=== PATIENT | female | born 1965 | race Caucasian/White ===

== ENCOUNTER → 2017-07-08 10:49 | Outpatient (CLI) | payer BC, SELFPAY ==
[2017-07-13 14:22] LABS: HPV Reflexed? NOT INDICATED
== END ==
PROVIDERS: Visit Provider Obstetrics & Gynecology
DX: Z12.4 Encounter for screening for malignant neoplasm of cervix (principal)
CPT/HCPCS: 88175; G0145

== ENCOUNTER 2018-06-24 10:37 | Day surgery (SDC) | payer BC, SELFPAY ==
[2018-06-24] VITALS (8 sets, daily range): BP systolic 102–128; BP diastolic 58–102; PULSE 66–75; RESP 16–18; TEMP 36.1–36.6; O2SAT 95–100; BMI 25.4
--- NOTE | 2018-06-24 11:37 | PCM.HP.STD ---
Problem List (1) Screening for intestinal cancer Status: Acute History of Present Illness Date of Admission: 06/24/18 The patient is a 53 year old F screening colonoscopy. She has never had a previous procedure. There is no increased risk. She otherwise enjoys good health. She has no abdominal pain bright red blood per rectum or melena. Past Medical History Allergies amoxicillin Allergy (Verified 06/21/18 14:28) Hives Home Medications: Ambulatory Orders Medication Instructions Recorded Ibuprofen 600 mg PO PRN PRN 06/21/18 Smoking Status: Never smoker Tobacco Use: Non-smoker Review of Systems Constitutional: Denies: Anorexia HEENT: Denies: Difficulty Swallowing Cardiovascular: Denies: Chest Pain Respiratory: Denies: Cough Gastrointestinal: Denies: Abdominal Pain, Hematochezia, Melena Skin: Denies: Dryness Psychiatric: Denies: Anxiety Endocrine: Denies: Change in Body Habitus VTE Information - Inpt Only VTE Present on Admission: No Patient Problems: Active and Suspected Problems Screening for intestinal cancer (Acute) - Physical Exam General: Alert, Oriented x3, Cooperative, No apparent distress Oral: Moist Mucosa Lungs: Clear to auscultation, Normal air movement Cardiovascular: Regular rate, Regular Rhythm Abdomen: Bowel Sounds Present, Soft, Non Tender Extremities: No Calf Tenderness Psych/Mental Status: Normal Affect Vital Signs Temp Pulse Resp BP Pulse Ox 97.8 F 69 18 121/59 H 100 06/24/18 11:10 06/24/18 11:10 06/24/18 11:10 06/24/18 11:10 06/24/18 11:10 Oxygen Delivery Method Room Air Weight: 167 lb 2.751 oz Body Mass Index (BMI) 25.4 Assessment/Plan All Active Problems Screening for intestinal cancer (Acute) I have recommended the patient a colonoscopy with possible biopsy or polypectomy as indicated. She is aware of the technique, benefits, risks and alternatives. She presents via our open access program. We will proceed as noted. David Hunt M.D., F.A.C.S.
--- NOTE | 2018-06-24 12:11 | OP.ENDO_ITS ---
06/24/2018 No Primary Care Physician Re : Colonoscopy procedure for Nathalia Gomez Dear Care Physician This procedure was performed on June. My impressions and recommendations are as follows: Impressions : - Diverticulosis in the sigmoid colon. - Tortuous colon. - No specimens collected. Recommendations : - Discharge patient to home. - Resume previous diet. - Continue present medications. - Repeat colonoscopy in 10 years for screening purposes. My findings are described in the full procedure note, which is enclosed. If I can be of further assistance, please feel free to contact me at Doctor phone number(s): Work: . Sincerely, David Hunt MD 06/24/2018 12:11:31 PM This report has been signed electronically.
== END 2018-06-24 13:03 | disposition home or self-care (01) ==
LOC: EN 10:39 → AC 10:40
PROVIDERS: Referring Provider Surgery; Visit Provider Surgery
PROC: 0DJD8ZZ Inspection of Lower Intestinal Tract, Via Natural or Artificial Opening Endoscopic (ICD-10-PCS; CPT 45378; principal; 2018-06-24 11:40)
DX: Z12.11 Encounter for screening for malignant neoplasm of colon (principal); K57.30 Diverticulosis of large intestine without perforation or abscess without bleeding; Q43.8 Other specified congenital malformations of intestine
CPT/HCPCS: 45378; 99152; 99153; J7120

== ENCOUNTER → 2018-07-13 14:50 | Outpatient (CLI) | payer BC, SELFPAY ==
[2018-06-24 11:10] VITALS: BMI 25.4
--- NOTE | 2018-07-13 14:52 | BI_ITS ---
MAMMOGRAPHY - BILATERAL SCREENING REASON FOR EXAM: Female, 53 years old. Routine annual screening examination. PERTINENT HISTORY: Non-contributory. TECHNIQUE: Digital bilateral breast grazyna (3D mammographic acquisition) in the CC and MLO projections. 2-D mediolateral oblique (MLO) and craniocaudad (CC) views of both breasts were obtained. CAD: Full Field Digital Mammography with Computer Added Detection was performed. COMPARISON: Comparison is made with prior study dated December 25, 2015 and March 31, 2017. FINDINGS: Breast Composition: The breasts are heterogeneously dense, which may obscure small masses. There are no dominant masses or suspicious calcifications. The previously seen nodular density in the upper outer quadrant of the right breast is not seen at this time. No other significant abnormalities are identified. BI/SCREENING MAMM (CAD), BILAT IMPRESSION: Stable bilateral screening mammogram. Yearly follow-up mammogram recommended. (A) ASSESSMENT CATEGORY: BIRADS Category 2: Benign. A letter regarding these results will be sent to the patient by the facility within 30 days. Approximately 10% of breast cancers are not detected by mammography. A normal mammogram should not delay biopsy of a clinically suspicious abnormality. [id number] Electronically Signed: Dakota Raphael, at 9:04 EST , Service support ,
--- NOTE | 2018-07-13 14:52 | BI_ITS ---
MAMMOGRAPHY - BILATERAL SCREENING REASON FOR EXAM: Female, 53 years old. Routine annual screening examination. PERTINENT HISTORY: Non-contributory. TECHNIQUE: Digital bilateral breast jose (3D mammographic acquisition) in the CC and MLO projections. 2-D mediolateral oblique (MLO) and craniocaudad (CC) views of both breasts were obtained. CAD: Full Field Digital Mammography with Computer Added Detection was performed. COMPARISON: Comparison is made with prior study dated December 25, 2015 and March 31, 2017. FINDINGS: Breast Composition: The breasts are heterogeneously dense, which may obscure small masses. There are no dominant masses or suspicious calcifications. The previously seen nodular density in the upper outer quadrant of the right breast is not seen at this time. No other significant abnormalities are identified. BI/Bilat Brst Screen Jose Add-On IMPRESSION: Stable bilateral screening mammogram. Yearly follow-up mammogram recommended. (A) ASSESSMENT CATEGORY: BIRADS Category 2: Benign. A letter regarding these results will be sent to the patient by the facility within 30 days. Approximately 10% of breast cancers are not detected by mammography. A normal mammogram should not delay biopsy of a clinically suspicious abnormality. [id number] Electronically Signed: Dakota Raphael, at 9:04 EST , Service support ,
== END ==
PROVIDERS: Visit Provider Obstetrics & Gynecology
DX: Z12.31 Encounter for screening mammogram for malignant neoplasm of breast (principal)
CPT/HCPCS: 77063; 77067

== ENCOUNTER 2020-07-24 13:40 | Outpatient (RCR) | payer BC, SELFPAY ==
[2018-06-24 11:10] VITALS: BMI 25.4
[2020-07-24] MEDS: COVID-19 VACC, MRNA(PFIZER)/PF 30 MCG/0.3 ML SYRINGE IM (14:18)
[2020-08-14] MEDS: COVID-19 VACC, MRNA(PFIZER)/PF 30 MCG/0.3 ML SYRINGE IM (14:23)
== END 2020-07-24 23:59 ==
LOC: IMMUN 13:40
PROVIDERS: PCP Obstetrics & Gynecology; Visit Provider Family Medicine
DX: Z23 Encounter for immunization (principal)
CPT/HCPCS: 0001A; 0002A; 91300

== ENCOUNTER 2021-02-06 08:04 | Emergency (ER) | payer BC, SELFPAY ==
[2021-02-06 08:05] VITALS: BP 139/85; PULSE 72; RESP 18; TEMP 35.4; O2SAT 97; BMI 28.1
--- NOTE | 2021-02-06 08:16 | VDLE_ITS ---
Reason For Study: Pain Procedure LEFT This is a venous duplex using B-mode, color GSV is normal. flow and spectral Doppler. CFV is compressible, spontaneous, phasic, Exam performed in department. competent, and demonstrates normal A preliminary report was called and/or faxed augmentation. to ED. FV is compressible, spontaneous, phasic, competent and demonstrates normal augmentation. POP V is compressible, spontaneous, phasic, competent and demonstrates normal augmentation. T/P Trunk is compressible. PTV is compressible. LT PerV is compressible. VL/Venous Duplex US, Unilateral Interpretation Summary There is no evidence of left lower extremity deep vein thrombosis. Left great s aphenous vein appears patent and compressible segmentally. Ordering Physician: Lor Kauffman Performed By: Génesis Olvera RVT
--- NOTE | 2021-02-06 08:18 | EDS_ITS ---
HPI History of Present Illness Chief Complaint: Lower Extremity Injury Detail of Chief Complaint: Left leg pain that started yesterday Informant: patient Narrative Narrative: Patient presents to the emergency department chief complaint of left leg pain that started yesterday. Patient states that initially like some cramping behind her left knee. Pain is now continuous. She denies any injury. She did drive back from [place] 3 days ago. She denies any redness or swelling to the leg. She does not have a history of PE or DVT. She denies any chest pain or shortness of breath. Pain is worse with movement. PFSH PFSH Medical History no medical history Allergy/AdvReac Type Severity Reaction Status Date / Time amoxicillin Allergy Hives Verified 02/06/21 08:06 Surgical History no surgical history Social History Smoking Status: Never smoker ROS ROS ED Constitutional Constitutional ED: Reports systems reviewed and no addt'l complaints, except as documented; Denies body ache(s), change in weight or chills Eyes Eyes: Denies acute decrease in peripheral vision, change in vision, double vision or loss of vision ENT ENT ED: Reports none; Denies ear pain, lip swelling, loss taste/smell, neck pain, otalgia or sore throat Cardiovascular Cardiovascular: Reports none; Denies abdominal pain, chest pain with activity, leg edema, lightheadedness, palpitations, rapid heart rate or syncope Respiratory/Chest Respiratory/Chest: Reports none; Denies change in mental status, dry cough, dys pnea, hemoptysis, shortness of breath at rest or shortness of breath with exertion Gastrointestinal Gastrointestinal: Reports none; Denies abdominal pain, change in stool character, diarrhea, hematemesis, hematochezia, melena, rectal bleeding or vomiting Genitourinary Genitourinary ED: Reports none; Denies abdominal discomfort, anuria, dysuria, genital pain or polyuria Musculoskeletal Musculoskeletal: Reports none and other Details: Left leg pain ; Denies arthralgias, back pain, difficulty walking, extremity pain, muscle weakness or myalgias Integumentary Reports none; Denies abscess or rash Neurologic Neurologic: Reports none; Denies abnormal gait, confusion, focal weakness, frequent falls, headache(s), loss of vision, numbness, paresthesias, radicular pain, vertigo or weakness Psychiatric Psychiatric: Reports systems reviewed and no addt'l complaints, except as documented and none; Denies behavioral changes, confusion, difficulty concentrating, hallucinations, suicidal ideation, tactile hallucinations or visual hallucinations Endocrine Endocrinology: Denies none, cold intolerance, excessive sweating, fatigue or heat intolerance Hematologic/Lymphatic Hematologic/Lymphatic: Reports none; Denies anemia, easy bleeding or easy brui sing Allergic/Immunologic Allergic/Immunologic ED: Denies as per HPI, none, lip swelling, mouth swelling, throat swelling, tongue swelling or hives EXAM Physical Exam Const Vital Signs: 02/06/21 08:05 Temperature 95.7 F L Temperature Source Temporal Pulse Rate 72 Respiratory Rate 18 Blood Pressure 139/85 H Blood Pressure Mean 139/85 Pulse Ox 97 Oxygen Delivery Method Room Air Positive well nourished and well developed General Appearance ED: well developed and NAD HEENT Reports TM's clear and moist mucous membranes normocephalic and atraumatic; Negative for trauma or tenderness Tympanic Membrane ED: Yes TM's clear Eyes PERRL and EOMs intact bilaterally General Eye ED: Negative for pale conjunctiva or scleral icterus Neck no lymphadenopathy, supple and no JVD General: Negative for tenderness Chest Wall inspection of chest normal and palpation of chest normal Chest: Negative for tenderness Resp normal respiratory effort and clear to auscultation bilaterally Effort and Inspection: Negative for respiratory distress or pain with movement Auscultation: Negative for rhonchi, wheezes or diminished lung sounds Cardio regular rate, regular rhythm, S1 normal heart sound, S2 normal heart sound and no murmurs Peripheral Pulses: pulses 2+ throughout GI normal to inspection, nondistended, normoactive bowel sounds, soft to palpation, non-tender, non-distended and no masses Back/Spine no CVA tenderness and no thoracic nor lumbar tenderness Extremity Extremity Narrative: Patient has tenderness palpation over the lateral aspect of the left bicep for Ermias tendon. There is no erythema or warmth noted to the lower extremity. No knee effusion noted. No ropes or cords palpated. No signi ficant tenderness over the calf. Neurovascularly intact distally. Patient does have limited flexion extension secondary to pain but she is able to fully flex and extend the knee. General Extremety ED: Negative for edema General Extremity: Negative for edema Neuro oriented x3, CN's II-XII intact bilaterally, no sensory deficits noted and gait normal Sensorium / Orientation: awake, alert, oriented to person, oriented to place and oriented to time Motor Exam: strength 5/5 throughout and strength abnormal Psych mental status grossly normal Skin no rashes or lesions noted and no wounds MDM MDM MDM Narrative Medical decision making narrative: Patient's venous Doppler was negative for DVT. I suspect likely a tendinitis of the biceps for Ermias tendon. I do not feel x-rays are indicated as she has had no trauma and really has no bony pain on exam. Patient will be given referral to follow-up with orthopedics within the next 5 to 7 days. She is advised to use ibuprofen for discomfort. She does not anything stronger for pain. Patient advised to return if worsening pain, fever, any redness, swelling, or condition should worsen anyway. Discharge Plan Triage Chief Complaint: Lower Extremity Injury ED Provider: Lor Kauffman Dx/Rx/DC Orders Clinical Impression: Acute leg pain, Tendinitis Instructions: ED Tendonitis Primary Care Provider: NOT,DEFINED Referrals: Jay Min MD [STAFF PHYSICIAN] - 5-7 Days NOT,DEFINED [Primary Care Provider] - Disposition Disposition: Home, Self Care
== END 2021-02-06 08:58 | disposition home or self-care (01) ==
LOC: ED 08:55
PROVIDERS: Emergency Provider Emergency Medicine
DX: M76.892 Other specified enthesopathies of left lower limb, excluding foot (principal)
CPT/HCPCS: 93971; 99282

== ENCOUNTER → 2021-04-10 | Outpatient (CLI) | payer BC, SELFPAY ==
[2021-04-17 16:14] LABS: HPV APTIMA, High Risk Negative (Negative)
== END | disposition home or self-care (01) ==
PROVIDERS: Visit Provider Obstetrics & Gynecology
DX: Z12.4 Encounter for screening for malignant neoplasm of cervix (principal)
CPT/HCPCS: 87624; 88175; G0145

== ENCOUNTER 2021-05-20 07:12 | Outpatient (CLI) | payer BC, SELFPAY ==
--- NOTE | 2021-05-20 07:15 | BI_ITS ---
MAMMOGRAPHY - BILATERAL SCREENING REASON FOR EXAM: Female, 56 years old. Routine annual screening examination. PERTINENT HISTORY: Non-contributory. TECHNIQUE: Digital bilateral breast misty (3D mammographic acquisition) in the CC and MLO projections. 2-D mediolateral oblique (MLO) and craniocaudad (CC) views of both breasts were obtained. CAD: Full Field Digital Mammography with Computer Added Detection was performed. COMPARISON: Comparison is made with prior study dated 07/13/2018 and 03/31/2017. FINDINGS: Breast Composition: The breasts are heterogeneously dense, which may obscure small masses. There are no dominant masses or suspicious calcifications. Stable small benign-appearing bilateral axillary lymph nodes. No other significant abnormalities are identified. There has been no significant change since the prior study. BI/SCRN MAMM (CAD)W/MISTY BILAT IMPRESSION: Stable bilateral screening mammogram. Yearly follow-up mammogram recommended. (A) ASSESSMENT CATEGORY: BIRADS Category 2: Benign. A letter regarding these results will be sent to the patient by the facility within 30 days. Approximately 10% of breast cancers are not detected by mammography. A normal mammogram should not delay biopsy of a clinically suspicious abnormality. [id number] Electronically Signed: Dakota Raphael MD at 8:23 EST , Service support ,
== END 2021-05-20 23:59 | disposition short-term general hospital (02) ==
LOC: OPBI 07:13
PROVIDERS: Visit Provider Obstetrics & Gynecology
DX: Z12.31 Encounter for screening mammogram for malignant neoplasm of breast (principal)
CPT/HCPCS: 77063; 77067

== ENCOUNTER → 2021-12-31 | Outpatient (CLI) | payer BC, SELFPAY ==
[2021-12-31 12:24] LABS: Absolute Lymphocyte Count 1.02 X10^3/uL (0.83-4.51); Absolute Neutrophil Count 3.1 X10^3/uL (2.0-7.7); Basophil# 0.03 X10^3/uL; Basophil% 0.6 % (0-1); Eosinophil# 0.09 X10^3/uL; Eosinophils% 1.9 % (0-5); Hematocrit 43.3 % (37-47); Hemoglobin 14.9 g/dL (12.0-15.0); Lymphocyte # 1.02 X10^3/ul (0.83-4.51); Lymphocyte % 21.9 % (19-41); Mean Corp Hgb Conc 34.4 g/dL (32-36); Mean Corpuscular Hgb 32.5 pg (27.0-32.0); Mean Corpuscular Volume 94.3 fL (81-99); Monocyte# 0.39 X10^3/uL; Monocyte% 8.4 % (0-10); NRBC Flagged by Analyzer 0 % (0-5); Neutrophil # 3.11 X10^3/uL (2.7-7.7); Neutrophil % 66.8 % (47-70); Platelet Count 257 K/mm3 (150-450); RBC Distribution Width CV 12.3 % (11.6-14.6); RBC Distribution Width SD 42.7 fl (35.1-43.9); Red Blood Count 4.59 M/mm3 (4.2-5.4); White Blood Count 4.7 K/mm3 (4.4-11.0)
[2021-12-31 13:06] LABS: Vitamin B12 350 pg/mL (211-911); Vitamin D,25 Hydroxy 18.5 ng/mL
[2021-12-31 13:08] LABS: ALB/GLOB Ratio 1.1 RATIO (0.9-2.4); AST(SGOT) 28 U/L (15-37); Alanine Aminotransfer ALT/SGPT 67 U/L (13-56); Albumin, Serum 3.9 g/dL (3.2-5.0); Alkaline Phosphatase 90 U/L (45-117); Anion Gap 6 (5-15); BUN 17 mg/dL (7-18); BUN/Creat Ratio 19.2 RATIO (10-20); Calcium,Total 9.3 mg/dL (8.5-10.1); Chloride 108 mmol/L (98-107); Creatinine, Serum 0.88 mg/dL (0.55-1.02); EST Glomerular Filtration Rate 70 mL/min (>60); Est Glom Filt Rate - Afr Amer 85 mL/min (>60); Ferritin 158 ng/mL (8-252); Globulin 3.5 g/dL (2.2-4.2); Glucose 102 mg/dL (74-106); Potassium 4.2 mmol/L (3.5-5.1); Protein, Total 7.4 g/dL (6.4-8.2); Sodium Level 140 mmol/L (136-145); Thyroid Stim Hormone (TSH) 3.05 uIU/mL (0.358-3.74)
== END | disposition home or self-care (01) ==
LOC: MTLAB 10:22
PROVIDERS: PCP Family Medicine; Referring Provider Family Medicine; Visit Provider Family Medicine
DX: R53.83 Other fatigue (principal)
CPT/HCPCS: 36415; 80053; 82306; 82607; 82728; 84443; 85025

== ENCOUNTER 2024-09-09 08:44 | Emergency (ER) | payer BC, SELFPAY ==
[2024-09-09 08:45] VITALS: BP 157/103; PULSE 87; RESP 18; TEMP 36.7; O2SAT 94; BMI 28.8
--- NOTE | 2024-09-09 09:03 | EX.ED.VIS.UR ---
HPI HPI - URI History of Present Illness Chief Complaint: Shortness of Breath Informant: patient Onset/Context/Timing Onset: Days Context: Gradual Onset Timing: Continuous Current Severity: Mild Maximum Severity: Mild Associated Symptoms Associated Symptoms: Positive for Nasal Congestion, Headache, Myalgias and Nonproductive cough Narrative Narrative: 59-year-old female denies any past medical history. On Thursday started having URI symptoms with a nonproductive cough and fevers as high as 103. Was seen at local urgent care twice was started on doxycycline and diagnosed with pneumonia on Thursday. States she does not feel like she is getting any better. Denies any vomiting. She does have a mild headache which is improving. Prior similar symptoms: Yes Recent Illness/Hospitalization: No ROS ROS ED ROS Narrative Fever. Nonproductive cough. Constitutional Constitutional ED: Reports fever(s) Eyes Eyes: Denies blurry vision ENT ENT ED: Denies ear pain Cardiovascular Cardiovascular: Denies chest pain Respiratory/Chest Respiratory/Chest: Reports cough Gastrointestinal Gastrointestinal: Denies abdominal pain, diarrhea, nausea or vomiting Genitourinary Genitourinary ED: Denies dysuria or hematuria Integumentary Denies abscess Neurologic Neurologic: Reports headache(s) Psychiatric Psychiatric: Denies anxiety Endocrine Endocrinology: Denies cold intolerance Hematologic/Lymphatic Hematologic/Lymphatic: Denies easy bleeding, easy bruising or lymphadenopathy Allergic/Immunologic Allergic/Immunologic ED: Denies mouth swelling, tongue swelling or urticaria PFSH PFSH Medical History no medical history no medical history Allergy/AdvReac Type Severity Reaction Status Date / Time amoxicillin Allergy Hives Verified 09/09/24 08:45 Social History Smoking Status: Never smoker EXAM Physical Exam Narrative Exam Narrative: 59-year-old female no acute distress. Sitting upright in bed. Vital signs are stable. Currently she is afebrile 91. Pulse ox 94% on room air no signs of hypoxia no respiratory distress. She does have a dry cough. H EENT exam pupils round reactive light. Moist mucous membranes. Posterior pharynx unremarkable. TMs normal. No frontal or maxillary sinus tenderness. Neck nontender. No lymphadenopathy. No meningismus. Able to touch chin to chest. Lungs clear to auscultation bilaterally. Dry cough. Heart regular rate and rhythm no murmur. Rate about 85. Chest wall ribs nontender. Abdomen soft nontender. Back nontender. Moving all 4 extremities. Normal range of motion. Normal strength. Nontender no edema. Neurologically she is awake alert. No focal motor deficits. NIH is 0. Answering questions following commands. Const Vital Signs: 09/09/24 08:45 09/09/24 09:06 09/09/24 09:29 Temperature 98.1 F 98.6 F Temperature Source Oral Pulse Rate 87 80 Respiratory Rate 18 15 Respiratory Effort Short of Breath Blood Pressure 157/103 H 143/78 H Blood Pressure Mean 121 99 Pulse Ox 94 99 Oxygen Delivery Method Room Air Room Air Positive well nourished and well developed; Negative for cachectic or contractures General Appearance ED: well developed and NAD; Negative for cachectic, contractures, cyanotic, diaphoretic or pallor Nutritional Appearance: Negative for cachectic HEENT Reports moist mucous membranes normocephalic and atraumatic Face and Sinus: Negative for sinus tenderness Throat: posterior oropharynx normal Eyes PERRL and EOMs intact bilaterally Neck no lymphadenopathy, supple, no meningeal signs and no JVD General: Negative for anterior neck swelling or lymphadenopathy Resp normal respiratory effort and clear to auscultation bilaterally Resp Narrative: Dry cough. Auscultation: Negative for rales, rhonchi, wheezes or diminished lung sounds Cardio S1 normal heart sound, S2 normal heart sound and no murmurs Rate: regular rate Rhythm: regular rhythm GI non-tender, non-distended and no masses Auscultation: normoactive bowel sounds Palpation: soft; Negative for tender or guarding Back/Spine no CVA tenderness and normal ROM General Back: Negative for CVA tenderness Cervical Spine: Negative for cervical spine tenderness Thoracic Spine / Upper Back: Negative for thoracic spinal tenderness Lumbar Spine / Lower Back: Negative for lumbar spinal tenderness Sacrum: Negative for tenderness Extremity normal to inspection and full ROM General Extremety ED: Negative for cyanosis, tenderness or other findings General Extremity: Negative for cyanosis or other findings Neuro oriented x3 and CN's II-XII intact bilaterally Sensorium / Orientation: alert, oriented to person, oriented to place and oriented to time; Negative for orientation impaired, lethargic or stuporous Motor Exam: strength 5/5 throughout Psych mental status grossly normal Appearance: Negative for other Attitude: No agitated Mood & Affect: Negative for depressed, anxious or tearful Skin General Skin Exam: Negative for jaundice or pallor Lesions: no lesions Rashes: no rashes Trauma: Negative for abrasion or laceration MDM MDM MDM Narrative Medical decision making narrative: 59-year-old female URI symptoms viral versus rule out pneumonia. Will obtain her own chest x-ray two-view and COVID and flu and RSV swab. Patient is in no distress. She is having no wheezing. She does not need aerosols. I do not believe she needs any blood work. Said her headache is very mild at this time and did not want anything for pain. She has been using ibuprofen at home. Repeat exam no significant change at 9:25 AM. Patient I discussed and went over x-ray results. She clinically and radiographically has a left upper lobe pneumonia. She is only been on doxycycline 3 days. She will continue that. She has a prescription for 10 days. Fluids and rest. Alternate Motrin and Tylenol for fever and bodyaches. If she is not improving in the next 5 days she needs to follow-up for further evaluation. At this time I would not change the antibiotic. History & Record Review Discussion w/independent historian: Patient Additional record(s) reviewed:: Prior inpatient record, Prior outpatient record, Prior ED visit and Prior labs Lab Data Attestation: I reviewed the patient's lab results. Lab results narrative: COVID, RSV and flu are all negative. Radiography Chest X-Ray - ED: 2 View, Read by ED Physician, Mediastinum, Bony Structures, Chronic Changes and Left Infiltrate Diagnostic Testing: Clinical Impression(s) from Imaging Studies Chest X-Ray 09/09/24 09:15 IMPRESSION: Findings are compatible with pneumonia on the LEFT. Follow-up to radiographic resolution recommended. Reading Location: [facility] Chest x-ray, 2 views, AP and lateral, interpreted by myself shows a left upper lobe density consistent with pneumonia Discharge Plan Triage Chief Complaint: Shortness of Breath ED Provider: Ananth Molina Dx/Rx/DC Orders Clinical Impression: Pneumonia Instructions: ED Pneumonia (Adult) Primary Care Provider: Curtis Fagan Referrals: NOT,DEFINED [Non-Staff] - Activity Restrictions/Additional Instructions: You have a left upper lobe pneumonia. The current antibiotic doxycycline you are on should cover it. You have not been on it that long it. Plenty of fluids and rest. Alternate ibuprofen and Tylenol for body aches and fever. Follow-up with your doctor or primary care physician or return if you are not improving in the next 5 days. Again you may not feel back to yourself for 2 to 4 weeks. But you should be progressively improving. Off work through and including Thursday. 09/12/2024. [id number] cough syrup or cough drops. Print Language: Irish Disposition Disposition: Home, Self Care Discharge Date/Time: 09/09/24 09:39
[2024-09-09 09:06] VITALS: O2SAT 98
--- NOTE | 2024-09-09 09:15 | RAD_ITS ---
PROCEDURE: CHEST PA AND LATERAL, 09/09/2024 REASON FOR EXAM: COUGH AND FEVER TECHNIQUE: PA and lateral views of the chest were obtained. COMPARISON: None FINDINGS: Heart: Unremarkable. Mediastinum: Unremarkable. Lungs/pleura: Patchy irregular airspace disease in the perihilar mid LEFT lung suggested on the AP view, not clearly visible on the lateral view. No pleural effusion or visible pneumothorax. Bones: Unremarkable. Lines and support devices: None. Other: None. RAD/Chest PA and Lateral IMPRESSION: Findings are compatible with pneumonia on the LEFT. Follow-up to radiographic resolution recommended. Reading Location: [id number]
[2024-09-09 09:29] VITALS: BP 143/78; PULSE 80; RESP 15; TEMP 37; O2SAT 99
== END 2024-09-09 09:39 | disposition home or self-care (01) ==
PROVIDERS: Emergency Provider Emergency Medicine; PCP Family Medicine; Visit Provider Emergency Medicine
DX: J18.9 Pneumonia, unspecified organism (principal); R06.02 Shortness of breath
CPT/HCPCS: 71046; 87631; 99282